=== PATIENT | female | born 1980 | race Two or more races ===

== ENCOUNTER 2019-02-18 03:49 | Emergency (ER) | payer MEDICAID, OTHER ==
[~2019-02-18] VITALS: Ht 160 cm; Wt 98.4 kg
[2019-02-18 07:00] VITALS: BP 136/86
[2019-02-18 07:13] LABS: Basophils # (auto) 0.1 uL; Basophils % (auto) 0.6 % (0.0-2.0); Eosinophils # (auto) 0.4 uL; Eosinophils % (auto) 3.7 % (0.0-7.0); Hematocrit 35.4 % (36.0-46.0); Hemoglobin 12.3 g/dL (12.2-16.2); Lymphocytes # (auto) 2.3 uL; Lymphocytes % (auto) 23.1 % (10.0-50.0); Mean Corpuscular Hemoglobin 30.9 pg (28.0-32.0); Mean Corpuscular Hgb Conc. 34.9 g/dL (32.0-36.0); Mean Corpuscular Volume 88.7 fL (80.0-100.0); Monocytes # (auto) 0.5 uL; Monocytes % (auto) 5.2 % (0.0-12.0); Neutrophils # (auto) 6.6 uL; Neutrophils % (auto) 67.4 % (37.0-80.0); Platelet Count (auto) 332 10^3/uL (140-450); Red Blood Cells 3.99 10^6/uL (4.0-5.20); Red Cell Distribution Width 13.5 % (11.8-14.3); White Blood Cell 9.8 10^3/uL (4.4-10.8)
[2019-02-18 07:17] LABS: INR 1.01 (0.9-1.15); Partial Thromboplastin Time 26.6 sec (23.64-32.05)
[2019-02-18 07:25] LABS: Potassium 3.5 mmol/L (3.5-5.1)
[2019-02-18 07:33] LABS: Albumin 2.6 g/dL (3.4-5.0); BUN/Creatinine Ratio 15.3; Bilirubin, Total 0.2 mg/dL (0.2-1.0); Calcium 8.7 mg/dL (8.5-10.1); Total Protein 6.9 g/dL (6.4-8.2)
== END 2019-02-18 08:25 | disposition home or self-care (01) ==
LOC: ER 03:51
DX: O26.892 Other specified pregnancy related conditions, second trimester (principal); I73.00 Raynaud's syndrome without gangrene; E86.0 Dehydration; M79.642 Pain in left hand; M79.641 Pain in right hand; E44.0 Moderate protein-calorie malnutrition; Z68.38 Body mass index [BMI] 38.0-38.9, adult; Z3A.17 17 weeks gestation of pregnancy; Z86.73 Personal history of transient ischemic attack (TIA), and cerebral infarction without residual deficits
CPT/HCPCS: 36415; 80053; 84702; 85025; 85610; 85730

== ENCOUNTER 2019-05-14 12:15 | Observation (INO) | payer MEDICAID | END 2019-05-14 15:00 | disposition home or self-care (01) | DRG 566 | LOC: LDRP 12:15 | PROVIDERS: ADMIT Obstetrics & Gynecology; ATTEND Obstetrics & Gynecology | DX: O62.9 Abnormality of forces of labor, unspecified (principal); O09.523 Supervision of elderly multigravida, third trimester; Z86.73 Personal history of transient ischemic attack (TIA), and cerebral infarction without residual deficits; Z86.718 Personal history of other venous thrombosis and embolism; Z3A.34 34 weeks gestation of pregnancy | CPT/HCPCS: 59025; 76805; 76817; 81002; G0378 ==

== ENCOUNTER 2019-06-12 00:01 | Observation (INO) | payer MEDICAID ==
[~2019-06-12] VITALS: Ht 157.5 cm; Wt 122.5 kg
[2019-06-12] MEDS ORDERED: TERBUTALINE SULFATE 1 MG/ML 1ML VIAL SC ONE ×2 (00:30)
[2019-06-12] MEDS ORDERED: ceFAZolin 1GM/50ML 50 ML IV ONE (00:45)
[2019-06-12 01:08] LABS: Urine WBC None Seen /hpf (0 - 5)
[2019-06-12 01:22] LABS: Urine Bacteria NONE SEEN /hpf (None Seen); Urine Blood 2+ /uL (Negative); Urine Mucus FEW (None Seen); Urine Specific Gravity 1.013 (1.001-1.035)
[2019-06-12 01:30] LABS: Basophils # (auto) 0.1 10 ^3/uL (0-0.2); Eosinophils # (auto) 0.2 10 ^3/uL (0-0.8); Eosinophils % (auto) 1.7 % (0.0-7.0); Hematocrit 38.1 % (36.0-46.0); Hemoglobin 12.7 g/dL (12.2-16.2); Lymphocytes # (auto) 4.6 10 ^3/uL (0.4-5.4); Lymphocytes % (auto) 40.7 % (10.0-50.0); Mean Corpuscular Hemoglobin 30.1 pg (28.0-32.0); Mean Corpuscular Hgb Conc. 33.4 g/dL (32.0-36.0); Mean Corpuscular Volume 89.9 fL (80.0-100.0); Monocytes # (auto) 0.6 10 ^3/uL (0-1.3); Monocytes % (auto) 5.2 % (0.0-12.0); Neutrophils # (auto) 5.9 10 ^3/uL (1.6-8.6); Neutrophils % (auto) 51.4 % (37.0-80.0); Nucleated Red Blood Cells % 0.1 %; Platelet Count (auto) 303 10^3/uL (140-450); Red Blood Cells 4.23 10^6/uL (4.0-5.20); Red Cell Distribution Width 14.1 % (11.8-14.3); White Blood Cell 11.4 10^3/uL (4.4-10.8)
[2019-06-12 01:32] LABS: Barbiturate Scree,Urine NEGATIVE (NEGATIVE); Benzodiazephine Screen, Urine NEGATIVE (NEGATIVE); Cannabinoid Screen, Urine NEGATIVE (NEGATIVE); Cocaine Screen, Urine NEGATIVE (NEGATIVE)
[2019-06-12 01:34] LABS: Amphetamine Screen, Urine NEGATIVE (NEGATIVE); Opiate Scree,Urine NEGATIVE (NEGATIVE); Phencyclidine Screen, Urine NEGATIVE (NEGATIVE)
[2019-06-12 01:47] LABS: INR 0.98 (0.9-1.15); Partial Thromboplastin Time 35.6 sec (23.64-32.05)
[2019-06-12 01:50] LABS: Albumin 2.3 g/dL (3.4-5.0); Anion Gap 10 (5-15); Blood Urea Nitrogen 16 mg/dL (7-18); Calcium 8.6 mg/dL (8.5-10.1); Carbon Dioxide 21 mmol/L (21-32); Chloride 105 mmol/L (98-107); Glucose 135 mg/dL (74-106); Potassium 3.4 mmol/L (3.5-5.1); Sodium 136 mmol/L (136-145)
[2019-06-12 02:00] LABS: Alanine Aminotransferase 13 U/L (13-56); Aspartate Aminotransferase 14 U/L (15-37); BUN/Creatinine Ratio 20.5; GFR African American 105 mL/min; GFR Non-African American 87 mL/min
[2019-06-12] MEDS ORDERED: LACTATED RINGER'S 1,000 ML IV ONE (02:00)
[2019-06-12 02:10] LABS: Uric Acid 4.7 mg/dL (2.6-6.0)
[2019-06-12 02:14] LABS: Alkaline Phosphatase 76 U/L (45-117); Bilirubin, Total < 0.1 mg/dL (0.2-1.0)
== END 2019-06-12 02:25 | disposition home or self-care (01) | DRG 566 ==
LOC: LDRP 00:01
PROVIDERS: ADMIT Specialist; ATTEND Specialist
DX: O42.913 Preterm premature rupture of membranes, unspecified as to length of time between rupture and onset of labor, third trimester (principal); O24.414 Gestational diabetes mellitus in pregnancy, insulin controlled; O13.3 Gestational [pregnancy-induced] hypertension without significant proteinuria, third trimester; O99.213 Obesity complicating pregnancy, third trimester; Z3A.34 34 weeks gestation of pregnancy
CPT/HCPCS: 36415; 59025; 76805; 76817; 80053; 80307; 81001; 81002; 82948; 82962; 84550; 85025; 85610; 85730; 86850; 86900; 86901; 96365; 96372; G0378; J0690; J3105; 96366